=== PATIENT | female | born 1950 | race Caucasian/White ===

== ENCOUNTER 2018-05-05 12:13 | Emergency (ER) | payer OTHER ==
[~2018-05-05] VITALS: Ht 162.6 cm; Wt 65.8 kg
== END 2018-05-06 10:00 | disposition home or self-care (01) ==
LOC: ER 12:13 → CPU-OBS 13:06 → ER 13:06 → CPU-OBS 05-06 10:00
DX: R55 Syncope and collapse (principal)
CPT/HCPCS: 93005 ×2; 93306; 70551; 70450; 82805; 36600; G0378; G0379

== ENCOUNTER 2021-03-23 08:11 | Outpatient (CLI) | payer OTHER | END 2021-03-23 08:25 | disposition home or self-care (01) | LOC: NUCLEAR 08:11 | PROVIDERS: ATTEND Internal Medicine Cardiovascular Disease | DX: I20.0 Unstable angina (principal); I50.1 Left ventricular failure, unspecified | CPT/HCPCS: 78452; 93017; A9500; J0153 ==